=== PATIENT | female | born 1975 | race African-American/Black ===

== ENCOUNTER 2021-09-06 10:21 | Emergency (ER) | payer SELFPAY ==
[~2021-09-06] VITALS: Ht 180.3 cm; Wt 149.2 kg
[2021-09-06 10:31] VITALS: BP_SYST 141
--- NOTE | 2021-09-06 10:35 | NUR ---
Patient to ER bed 8 to gown for evaluation. Side rails up. Assumed care.
--- NOTE | 2021-09-06 10:39 | NUR ---
Pt. came in with c/o cough X 3 days, non productive, denies any pain, does have hx. of bronchitits and used albuterol and advir prior to arrival, lungs clear on auscultation Addendum: 09/06/21 at 1046 by RADHA pt. used atrovent and albuterol not advir
--- NOTE | 2021-09-06 10:58 | NUR ---
ER at bedside examining patient.
[2021-09-06] MEDS ORDERED: PROM5SYR PO ×3 (11:15→13:41)
[2021-09-06] MEDS ORDERED: PRED20TA PO ×3 (11:18→13:41)
[2021-09-06 11:30] VITALS: BP_SYST 141
--- NOTE | 2021-09-06 11:32 | NUR ---
Patient given written and verbal discharge instructions and verbalizes understanding. ER MD discussed with patient the results and treatment provided. Patient in stable condition. ID arm band removed. Rx of Promethazine/codeine given. Patient educated on pain management and to follow up with PMD. Pain Scale 3/10 . Opportunity for questions provided and answered. Medication side effect fact sheet provided.
== END 2021-09-06 11:30 | disposition home or self-care (01) ==
LOC: SED 10:21
DX: J06.9 Acute upper respiratory infection, unspecified (principal); Z88.8 Allergy status to other drugs, medicaments and biological substances; Z79.899 Other long term (current) drug therapy
CPT/HCPCS: 99283

== ENCOUNTER 2021-11-04 15:04 | Emergency (ER) | payer SELFPAY ==
[~2021-11-04] VITALS: Ht 180.3 cm; Wt 149.2 kg
[~2021-11-04 15:04] MED LIST: PRED20TA PO; PROM5SYR PO
[2021-11-04 15:45] VITALS: BP_SYST 151
--- NOTE | 2021-11-04 15:45 | NUR ---
PT TRIAGED AND PLACED IN ED LOBBY FOR AVAILABLE BED IN MAIN ED. MADE AWARE OF MSE
--- NOTE | 2021-11-04 15:46 | NUR ---
PT CAME IN FROM HOME PT WOULD LIKE RX FOR PREDNISONE AND COUGHT SYRUP FOR SEASONAL ALLERGIES, STATES THAT SHE HAS BEEN GIVEN THEM IN THE PAST FOR THESE SYMPTOMS AND DOES NOT HAVE A DRWon TO GO TO RIGHT NOW. PT IS AMBULATORY, AAOX4, VSS
--- NOTE | 2021-11-04 15:48 | NUR ---
ER DR. EDWARD TO EXAMINE PT IN TRIAGE
[2021-11-04] MEDS ORDERED: PRED20TA PO ×2 (15:51→16:08)
[2021-11-04] MEDS ORDERED: PROM5SYR PO ×3 (15:51→16:46)
[2021-11-04 16:11] VITALS: BP_SYST 151
--- NOTE | 2021-11-04 16:11 | NUR ---
Patient given written and verbal discharge instructions and verbalizes understanding. ER MD discussed with patient the results and treatment provided. Patient in stable condition. ID arm band removed. IV catheter removed intact and dressing applied, no active bleeding. Rx of PREDNISONE AND PROMETHAZINE HCL WITH CODEINE given. Patient educated on pain management and to follow up with PMD. Pain Scale . Opportunity for questions provided and answered. Medication side effect fact sheet provided.
== END 2021-11-04 16:11 | disposition home or self-care (01) ==
LOC: SED 15:04
DX: J40 Bronchitis, not specified as acute or chronic (principal); Z88.8 Allergy status to other drugs, medicaments and biological substances; Z79.899 Other long term (current) drug therapy
CPT/HCPCS: 99283

== ENCOUNTER 2022-06-27 11:03 | Emergency (ER) | payer MEDICAID ==
[~2022-06-27] VITALS: Ht 180.3 cm; Wt 152.4 kg
[~2022-06-27 11:03] MED LIST changes: +PRED50TA PO
[2022-06-27 11:15] VITALS: BP_SYST 162
--- NOTE | 2022-06-27 11:19 | NUR ---
Patient to ER bed 2 to gown for evaluation. Side rails up. Report given to Laila MELISSA.
--- NOTE | 2022-06-27 11:20 | NUR ---
ASSUMED PATIENT CARE PT AOX4 GCS 15 PLACED IN ROOM 2, PT C/O COUGH X 3 DAYS STATES SHE HAS BEEN GIVNG HERSELF BREATHING TX AT HOME WITH NO IMPROVEMENT. SHE ALSO TOOK A HOME COVID TEST YESTERDAY THAT RESULTED NEGATIVE. PT STATES SHE HAS A HX OF BRONCHITIS.
--- NOTE | 2022-06-27 11:21 | NUR ---
ER at bedside examining patient.
[2022-06-27 11:25] VITALS: BP_SYST 162
[2022-06-27] MEDS ORDERED: predniSONE 20 MG TABLET PO ONE (11:30)
--- NOTE | 2022-06-27 11:39 | NUR ---
LUNGS ASCULTATED BILATERAL EXPIRATORY WHEEZES NOTED ON UPPER LOBES, BILATERAL LOWER LOBES DIMISHED. LUNG EXPANSION EQUAL AND SYMETRICAL PT AOX4 GCS 15 DENIES FEVER , CHILLS, N/V/D.
[2022-06-27] MEDS ORDERED: PRED50TA PO ×3 (11:47→11:56)
[2022-06-27] MEDS ORDERED: PROM5SYR PO ×3 (11:47→11:56)
--- NOTE | 2022-06-27 12:26 | NUR ---
Patient given written and verbal discharge instructions and verbalizes understanding. ER MD discussed with patient the results and treatment provided. Patient in stable condition. ID arm band removed. IV catheter removed intact and dressing applied, no active bleeding. Rx of prednisone,promethazine/codeine given. Patient educated on pain management and to follow up with PMD. Pain Scale 0. Opportunity for questions provided and answered. Medication side effect fact sheet provided.
== END 2022-06-27 12:26 | disposition home or self-care (01) ==
LOC: SED 11:03
DX: J40 Bronchitis, not specified as acute or chronic (principal); R05.9 Cough, unspecified; R06.2 Wheezing; Z88.8 Allergy status to other drugs, medicaments and biological substances; Z79.899 Other long term (current) drug therapy
CPT/HCPCS: 99283; J7512

== ENCOUNTER 2022-11-30 10:34 | Emergency (ER) | payer SELFPAY ==
[~2022-11-30] VITALS: Ht 180.3 cm; Wt 154.2 kg
[2022-11-30 10:35] VITALS: BP_SYST 136
[2022-11-30] MEDS ORDERED: PRED20TA PO (11:13)
[2022-11-30] MEDS ORDERED: ALBMDI INH (11:13)
[2022-11-30] MEDS ORDERED: PROM5SYR PO (11:14)
== END 2022-11-30 11:37 | disposition home or self-care (01) ==
LOC: SED 10:34
DX: J20.9 Acute bronchitis, unspecified (principal); R05.9 Cough, unspecified; I10 Essential (primary) hypertension; Z88.6 Allergy status to analgesic agent; Z88.8 Allergy status to other drugs, medicaments and biological substances; Z79.899 Other long term (current) drug therapy
CPT/HCPCS: 99283

== ENCOUNTER 2023-04-18 13:00 | Emergency (ER) | payer SELFPAY ==
[~2023-04-18] VITALS: Ht 177.8 cm; Wt 134.3 kg
[2023-04-18 13:00] VITALS: BP_SYST 118; PULSE 60; RESP 19; TEMP 97; O2SAT 99
[~2023-04-18 13:00] MED LIST changes: +ALBMDI INH
[2023-04-18] MEDS ORDERED: PROM473S6 PO (14:35)
[2023-04-18] MEDS ORDERED: PRED20TA PO (14:35)
[2023-04-18 14:48] VITALS: BP_SYST 118; PULSE 60; RESP 19; TEMP 97; O2SAT 99
== END 2023-04-18 14:48 | disposition home or self-care (01) ==
LOC: SED 13:00
DX: J45.909 Unspecified asthma, uncomplicated (principal); R05.9 Cough, unspecified; R09.81 Nasal congestion; Z88.6 Allergy status to analgesic agent; Z88.8 Allergy status to other drugs, medicaments and biological substances; Z79.899 Other long term (current) drug therapy
CPT/HCPCS: 99283